=== PATIENT | male | born 2005 | race Caucasian/White ===

== ENCOUNTER 2023-10-28 20:44 | Emergency (ER) | payer SELFPAY | END 2023-10-28 22:04 | disposition home or self-care (01) | LOC: JD.ED 20:44 | DX: S83.91XA Sprain of unspecified site of right knee, initial encounter (principal); Z88.0 Allergy status to penicillin; X50.1XXA Overexertion from prolonged static or awkward postures, initial encounter; Y99.0 Civilian activity done for income or pay | CPT/HCPCS: 73562-26-RT; 73562-RT; 99283 ==